=== PATIENT | female | born 1980 | race Caucasian/White ===

== ENCOUNTER 2020-06-07 01:42 | Emergency (ER) | payer SELFPAY ==
[2020-06-07 02:47] LABS: Bilirubin Negative (Negative); Blood, Urine Negative (Negative); Clarity Clear (Clear); Glucose, Urine (Dipstick) Normal (Negative); Ketone, Urine Negative (Negative); Leukocyte Negative Leu/uL (Negative); Nitrite Negative (Negative); Protein, Urine (Dipstick) Negative (Neg-Trace); Specific Gravity, Urine 1.014 (1.002-1.036); Urobilinogen Normal mg/dL (Less than 2)
[2020-06-07 02:48] LABS: Pregnancy Test - Urine (BHCG) Negative (Negative); Pregu Control Background? CLEAR/WHITE (CLR/WHITE); Pregu Control Bar Appear? YES (CONTROL BAR); Specific Gravity 1.014 (1.002-1.036)
[2020-06-07 03:36] LABS: #Basophils 0.1 thou/uL (0.0-0.2); #Eosinphils 0.1 thou/uL (0.0-0.7); #Lymphocytes 3.3 thou/uL (1.20-3.40); #Monocytes 0.5 thou/uL (0.11-0.59); #Neutrophils 2.9 thou/uL (1.40-6.50); %Basophils 0.8 % (0.0-1.0); %Eosinophils 1.8 % (0.0-10.0); %Lymphocytes 47.8 % (21.0-51.0); %Monocytes 7.8 % (0.0-10.0); %Neutrophils 41.8 % (42.0-75.0); Hemoglobin 12.8 g/dL (12.0-16.0); Mean Corpuscular HGB CONC 34.4 g/dL (32.0-36.0); Mean Corpuscular Hemoglobin 31.6 pg (27.0-31.0); Mean Corpuscular Volume 91.8 fL (78.0-98.0); Mean Platelet Volume 7.8 fL (7.4-10.4); Platelet Count 244 thou/uL (130-400); RBC Distribution Width 11.1 % (11.5-14.5); Red Blood Cell (RBC) Count 4.04 mill/uL (4.20-5.40)
[2020-06-07] MEDS ORDERED: Lidocaine 1% PF 5 ML VIAL ONE (03:42)
[2020-06-07] MEDS ORDERED: cefTRIAXone\\ROCEPHIN 500 MG VIAL ONE (03:42)
[2020-06-07] MEDS ORDERED: Azithromycin 250 MG TAB ONE (03:42)
[2020-06-08 23:04] LABS: Chlam.trachomatis by PCR,Urine Not Detected (NotDetected)
== END 2020-06-07 04:08 | disposition home or self-care (01) ==
LOC: ERS 01:42
DX: N72 Inflammatory disease of cervix uteri (principal); D64.9 Anemia, unspecified; Z87.891 Personal history of nicotine dependence
CPT/HCPCS: 36415; 81003; 81025; 85025; 87491; 87591; 96372; 99284; J0696